=== PATIENT | female | born 1990 | race Caucasian/White ===

== ENCOUNTER 2024-05-03 10:06 | Emergency (ER) | payer BC, SELFPAY ==
[2024-05-03 10:07] VITALS: BP 119/80; PULSE 69; RESP 20; TEMP 36.4; O2SAT 100
[2024-05-03 10:14] VITALS: BMI 44.2
--- NOTE | 2024-05-03 10:28 | EX.ED.VIS.HA ---
HPI History of Present Illness Chief Complaint: Headache Informant: patient Onset/Context/Timing Onset: Today Context: Gradual Timing: Continuous Quality -Headache: Positive for Similar Prior Headaches and Sharp Location: Behind both eyes and wraps around to the back of her head. Current Severity: Severe Maximum Severity: Severe Associated Symptoms/Injury Associated Symptoms: Positive for Nausea, Vomiting and Photophobia; Negative for Fever, Sore Throat, Sinus Pressure, Numbness, Tingling, Preceding Aura, Visual Changes, Blurred Vision or Visual Loss Injury - ANTONY: Negative for Direct Trauma, Fall or Assault Narrative Narrative: 33-year-old female history of anxiety and depression. History of migraine headaches. Never been worked up for those. States at 615 this morning she awoke with a headache behind both eyes associated with photophobia. It wraps around the back of her head. She states that she has had headaches like this before but not this severe. Typically does not last this long. Its now been 4+ hours. She denies any fall or head trauma. She is on no blood thinners. She denies any fever or sinus congestion. No one else at home currently is having a headache. She denies any trouble moving her arms or legs. She denies any numbness. No visual change other than photophobia. No change in her speech. Prior similar symptoms: Yes Recent Illness/Hospitalization: No [facility], [facility] Medical History Genital herpes Migraine Depression Anxiety Home Medications ?Medication ?Instructions ?Recorded ?Last Taken ?Type escitalopram oxalate 5 mg tablet 5 mg PO DAILY 05/03/24 Unknown History (Lexapro) famotidine 20 mg tablet (Pepcid) 20 mg PO DAILY 05/03/24 Unknown History multivitamin 1 tab PO DAILY 05/03/24 Unknown History sumatriptan succinate 25 mg tablet See Rx Instructions PO .COMPLEX #7 05/03/24 Unknown Rx (Imitrex) tabs venlafaxine 37.5 mg 37.5 mg PO DAILY 05/03/24 Unknown History capsule,extended release 24 hr (Effexor XR) Allergy/AdvReac Type Severity Reaction Status Date / Time No Known Allergies Allergy Verified 05/03/24 10:08 Surgical History History of tonsillectomy Social History household members: significant other and children housing: house current occupational status: employed Smoking Status: Never smoker ROS ROS ED ROS Narrative Headache. Nausea vomiting. Constitutional Constitutional ED: Denies chills or fever(s) Eyes Eyes: Denies blurry vision, change in vision or diplopia ENT ENT ED: Denies ear pain, rhinorrhea or sore throat Cardiovascular Cardiovascular: Denies chest pain Respiratory/Chest Respiratory/Chest: Denies cough or dyspnea Gastrointestinal Gastrointestinal: Reports nausea and vomiting; Denies abdominal pain or diarrhea Genitourinary Genitourinary ED: Denies dysuria or hematuria Musculoskeletal Musculoskeletal: Denies arthralgias or back pain Integumentary Denies abscess or Abrasions Neurologic Neurologic: Reports headache(s); Denies paresthesias, weakness or other Psychiatric Psychiatric: Reports suicidal ideation; Denies anxiety or depression Endocrine Endocrinology: Denies polydipsia Hematologic/Lymphatic Hematologic/Lymphatic: Denies easy bleeding Allergic/Immunologic Allergic/Immunologic ED: Denies mouth swelling, tongue swelling or urticaria EXAM Physical Exam Narrative Exam Narrative: 33-year-old female sitting upright in bed. Dark room. Significant other at bedside. Vital signs are stable. Afebrile. She does not look septic or toxic. She is in no distress I think complaining of pain. H EENT exam pupils round reactive light. Extra motions intact. No frontal or maxillary sinus tenderness. Moist mucous membranes. No facial droop. No trauma to her face or scalp. Nontender. No hematomas. No bruising. Neck nontender no meningismus. No lymphadenopathy. She is able to easily flex her chin to her chest. Lungs clear. Heart regular rate and rhythm no murmur rate about 70. Abdomen soft nontender. Moving all 4 extremities. Normal strength. No edema. Back nontender. Neurologically she is awake and alert. No focal motor deficits. NIH 0. Answering questions following commands. Photophobic. Normal strength. Normal sensation. Fingertip to nose within normal limits. No drift. Const Vital Signs: 05/03/24 10:07 05/03/24 12:02 05/03/24 12:03 Temperature 97.5 F L 97.5 F L Temperature Source Temporal Pulse Rate 69 69 69 Respiratory Rate 20 H 16 16 Blood Pressure 119/80 121/65 H 121/65 H Blood Pressure Mean 93 83 83 Pulse Ox 100 99 99 Oxygen Delivery Method Room Air Room Air Positive well nourished and well developed; Negative for cachectic or unkempt General Appearance ED: well developed and NAD; Negative for unkempt, cachectic, cyanotic, diaphoretic or pallor Nutritional Appearance: Negative for cachectic HEENT Reports normocephalic and moist mucous membranes atraumatic; Negative for trauma, tenderness, temporal artery tenderness or vesicular rash Face and Sinus: Negative for sinus tenderness Eyes PERRL and EOMs intact bilaterally General Eye ED: Negative for pale conjunctiva or scleral icterus Neck no lymphadenopathy, supple, no meningeal signs and no JVD General: Negative for tenderness Resp normal respiratory effort and clear to auscultation bilaterally Auscultation: Negative for rales, rhonchi or wheezes Cardio regular rate, regular rhythm, S1 normal heart sound, S2 normal heart sound and no murmurs Rate: Negative for bradycardia or tachycardic Rhythm: Negative for abnormal rhythm GI non-tender and non-distended Palpation: soft; Negative for tender Back/Spine no CVA tenderness General Back: Negative for CVA tenderness or tenderness Cervical Spine: Negative for cervical spine tenderness Thoracic Spine / Upper Back: Negative for thoracic spinal tenderness Lumbar Spine / Lower Back: Negative for lumbar spinal tenderness Extremity normal to inspection and full ROM General Extremety ED: Negative for edema or tenderness General Extremity: Negative for edema Neuro oriented x3, CN's II-XII intact bilaterally and no sensory deficits noted Sensorium / Orientation: awake, alert, oriented to person, oriented to place and oriented to time; Negative for orientation impaired or lethargic Coordination / Balance: [id number] test normal Speech: speech normal Motor Exam: strength 5/5 throughout Psych mental status grossly normal Appearance: Negative for unkempt Attitude: No agitated Mood & Affect: Negative for depressed, anxious or tearful Skin General Skin Exam: turgor normal; Negative for jaundice or pallor Lesions: no lesions Rashes: no rashes MDM MDM MDM Narrative Medical decision making narrative: 33-year-old female with headache with a history of migraines. She will be treated with IV fluids, Toradol, Benadryl and Compazine. Reassess. Send is the worst headache she has ever had she has never had imaging. I am obtained a CAT scan. Her neurologic exam currently is normal as is the rest of her exam. NIH score 0. Repeat exam at 11:55 AM. Patient's headache is completely resolved. Clinically she looks much better. She is smiling. Neurologic exam is normal. We discussed her normal CAT scan results. She is comfortable being discharged home. I will write her for Imitrex to try next time she gets a headache. She is comfortable with the plan. History & Record Review Discussion w/independent historian: Patient Radiography Diagnostic Testing: Clinical Impression(s) from Imaging Studies Brain CT 05/03/24 10:41 IMPRESSION: Negative head/brain CT without intravenous contrast. Electronically Signed: Mir Antonio MD at 11:04 EST , Discharge Plan Triage Chief Complaint: Headache ED Provider: Zach Gay Dx/Rx/DC Orders Clinical Impression: Headache, History of migraine Instructions: ED, Migraine (Classical) Prescriptions: New sumatriptan succinate [Imitrex] 25 mg tablet See Rx Instructions .ROUTE .COMPLEX Qty: 7 0RF Rx Instructions: take 1 tab at onset of headache; if no relief may repeat 1 tab after at least 2 hrs; max = 4 tabs/24 hr No Action multivitamin Tablet 1 tab PO DAILY famotidine [Pepcid] 20 mg tablet 20 mg PO DAILY venlafaxine [Effexor XR] 37.5 mg capsule,extended release 24hr 37.5 mg PO DAILY escitalopram oxalate [Lexapro] 5 mg tablet 5 mg PO DAILY Primary Care Provider: Annelise Hinojosa Referrals: Annelise Hinojosa, DO [Primary Care Provider] - 3-5 Days if not improving Activity Restrictions/Additional Instructions: Plenty of fluids and rest. Alternate Tylenol Motrin for pain. Follow-up with not improving or return. Imitrex as needed for your headaches try it and see if it works well for you. It usually works better the sooner you take it after headache. Print Language: Slovak Disposition Disposition: Home, Self Care
[2024-05-03] MEDS: 0.9% Normal Saline (1000mL) 1,000 ML 999 ML IV (10:34)
[2024-05-03] MEDS: proCHLORPERazine 10 MG/2 ML Vial IV (10:35)
[2024-05-03] MEDS: DiphenhydrAMINE 50 MG/ML Syringe IV (10:35)
[2024-05-03] MEDS: Ketorolac 30 MG/ML Syringe IV (10:35)
--- NOTE | 2024-05-03 10:41 | CT_ITS ---
EXAM: CT HEAD WITHOUT INTRAVENOUS CONTRAST CLINICAL INDICATION: Pain TECHNIQUE: Multiple axial images were obtained of the head without intravenous contrast. This CT exam was performed using one or more of the following dose reduction techniques: automated exposure control, adjustment of the mA and/or kV according to patient size, and/or use of iterative reconstruction technique. RADIATION DOSE: CTDIvol = 44.99 mGy, DLP = 796.11 mGy-cm COMPARISON: No relevant prior studies available. FINDINGS: BRAIN AND EXTRA-AXIAL SPACES: Unremarkable. No intra- or extra-axial hemorrhage. No evidence of acute infarct. No intracranial mass or mass effect. There is preservation of the mata/white matter interface. Posterior fossa structures are unremarkable. Ventricles are appropriate for age. No hydrocephalus. Basal cisterns are patent. BONES/JOINTS: Unremarkable. No discrete lytic or blastic abnormalities. SINUSES: Unremarkable as visualized. Clear. MASTOID AIR CELLS: Unremarkable. Clear. ORBITS: Visualized globes, extraocular muscles, optic nerves and retrobulbar fat appear unremarkable. CT/Brain/Head without Contrast IMPRESSION: Negative head/brain CT without intravenous contrast. Electronically Signed: Mir Antonio MD at 11:04 EST ,
[2024-05-03 12:02] VITALS: BP 121/65; PULSE 69; RESP 16; O2SAT 99
[2024-05-03 12:03] VITALS: BP 121/65; PULSE 69; RESP 16; TEMP 36.4; O2SAT 99
== END 2024-05-03 12:13 | disposition home or self-care (01) ==
LOC: ED 11:06
PROVIDERS: Emergency Provider Emergency Medicine; PCP Internal Medicine; Visit Provider Emergency Medicine
DX: G43.909 Migraine, unspecified, not intractable, without status migrainosus (principal)
CPT/HCPCS: 70450; 96361; 96374; 96375; 99283; A4216

== ENCOUNTER 2024-06-17 11:05 | Emergency (ER) | payer BC, SELFPAY ==
[2024-06-17 11:06] VITALS: BP 158/89; PULSE 84; RESP 16; TEMP 36.7; O2SAT 99; BMI 43.5
--- NOTE | 2024-06-17 11:11 | EX.ED.DYSGE1 ---
HPI <IGOR Dodson - Last Filed: 06/17/24 11:42> History of Present Illness Chief Complaint: Laceration Narrative Narrative: 33-year-old female was slicing a piece of sourdough bread and accidentally a small chunk of skin off her left thumb. She held pressure for about an hour but it is still bleeding whenever she lets go so she presents for evaluation. No weakness numbness or tingling. Tetanus is up-to-date. PFSH <IGOR Dodson - Last Filed: 06/17/24 11:42> [facility] Medical History Genital herpes Migraine Depression Anxiety Home Medications ?Medication ?Instructions ?Recorded ?Last Taken ?Type escitalopram oxalate 5 mg tablet 5 mg PO DAILY 05/03/24 Unknown History (Lexapro) famotidine 20 mg tablet (Pepcid) 20 mg PO DAILY 05/03/24 Unknown History multivitamin 1 tab PO DAILY 05/03/24 Unknown History sumatriptan succinate 25 mg tablet See Rx Instructions PO .COMPLEX #7 05/03/24 Unknown Rx (Imitrex) tabs venlafaxine 37.5 mg 37.5 mg PO DAILY 05/03/24 Unknown History capsule,extended release 24 hr (Effexor XR) Allergy/AdvReac Type Severity Reaction Status Date / Time No Known Allergies Allergy Verified 05/03/24 10:08 Surgical History History of tonsillectomy Social History household members: significant other and children housing: house current occupational status: employed Smoking Status: Never smoker ROS <IGOR Dodson - Last Filed: 06/17/24 11:42> ROS ED ROS Narrative Neuro: Negative for motor/sensory dysfunction. Skin: Positive for wound. EXAM <IGOR Dodson - Last Filed: 06/17/24 11:42> Physical Exam Narrative Exam Narrative: CONST: Patient sitting in no acute distress. EYES: Normal inspection. EXTREMITIES: Normal appearance of the left upper extremity, left distal thumb pad has a small skin avulsion with slow active bleeding. There is no nail injury or subungual hematoma. She has full range of motion of the left hand and thumb, normal strength and sensation, 2+ radial pulse and brisk cap refill. NEURO: Alert and answering questions appropriately. PSYCH: Normal affect. Const Vital Signs: 06/17/24 11:06 Temperature 98.1 F Temperature Source Oral Pulse Rate 84 Respiratory Rate 16 Blood Pressure 158/89 H Blood Pressure Mean 112 Pulse Ox 99 Oxygen Delivery Method Room Air <Dr. Jabari Gomez MD - Last Filed: 06/17/24 11:46> Physical Exam Const Vital Signs: 06/17/24 11:06 Temperature 98.1 F Temperature Source Oral Pulse Rate 84 Respiratory Rate 16 Blood Pressure 158/89 H Blood Pressure Mean 112 Pulse Ox 99 Oxygen Delivery Method Room Air MDM <IGOR Dodson - Last Filed: 06/17/24 11:42> [facility] Narrative Medical decision making narrative: 33-year-old female has a skin avulsion injury of the left distal phalanx of the thumb from a kitchen knife. Without pressure it still has slow active bleeding. She has full range of motion and extremity is neurovascularly intact. The wound was cleansed and Surgicel applied with Coban to achieve hemostasis. She states her tetanus is up-to-date. She was given wound care instructions and discharged in stable condition <Dr. Jabari Gomez MD - Last Filed: 06/17/24 11:46> [facility] Treatment and Re-Evaluation Comments:: I have personally performed a face to face assessment of the patient and have reviewed the SHOSHANA Note. I performed a substantive portion of the visit including all aspects of the following. My ramirez findings include: History is accidental skin avulsion to the left thumb with a kitchen knife, difficulty getting the bleeding to stop no antiplatelet or anticoagulant medications. Exam is superficial epidermal avulsion with venous oozing tip of left thumb no nail or bed injury. Medical Decison Making bleeding well-controlled with dressing and Surgicel. Supportive care advised, nothing to repair patient amenable. Other additions or changes: [None] Discharge Plan Triage Chief Complaint: Laceration ED Midlevel Provider: Sangeetha Rodriguez ED Provider: Jabari Gomez Dx/Rx/DC Orders Clinical Impression: Avulsion of skin of left thumb Instructions: ED Skin Tear (Skin Avulsion) Prescriptions: No Action multivitamin Tablet 1 tab PO DAILY famotidine [Pepcid] 20 mg tablet 20 mg PO DAILY venlafaxine [Effexor XR] 37.5 mg capsule,extended release 24hr 37.5 mg PO DAILY escitalopram oxalate [Lexapro] 5 mg tablet 5 mg PO DAILY sumatriptan succinate [Imitrex] 25 mg tablet See Rx Instructions .ROUTE .COMPLEX Qty: 7 0RF Rx Instructions: take 1 tab at onset of headache; if no relief may repeat 1 tab after at least 2 hrs; max = 4 tabs/24 hr Primary Care Provider: Annelise Hinojosa Referrals: Annelise Hinojosa, [Primary Care Provider] - Activity Restrictions/Additional Instructions: If bleeding reoccurs hold direct pressure for at least 20 minutes without letting go. Leave the bandage we placed on for about 1 to 2 days. Print Language: Stateless Disposition Disposition: Home, Self Care
== END 2024-06-17 11:48 | disposition home or self-care (01) ==
PROVIDERS: Emergency Provider Emergency Medicine; PCP Internal Medicine; Visit Provider Emergency Medicine
DX: S61.002A Unspecified open wound of left thumb without damage to nail, initial encounter (principal); W26.0XXA Contact with knife, initial encounter
CPT/HCPCS: 99282